=== PATIENT | male | born 1965 ===

== ENCOUNTER 2017-09-29 14:33 | Emergency (ER) | payer OTHER ==
[2017-09-29 14:48] VITALS: BP 124/83
--- NOTE | 2017-09-29 15:39 | UC ---
Headache HPI - HPI Summary HPI Summary: c/o malaise, fever, sore throat and nasal congestion for the past 5 days, was tested for influenza which was negative, and stopped treatment with tamiflu after third dose. Symptoms have continued, he c/o headaches which start above eyes and radiate backward all the way to the neck. He has not been able to sleep. Headaches do not have an aura, denies nausea/vomiting 4-5/10 in intensity , sore/pressure like. Denies blurred vision or tinnitus associated with it. He had an injury May 2017 with HNP of c5-c6 and is about to have an epidural injection for pain control. Has been taking meloxicam daily for pain. 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 [employer] Onset/Duration: Gradual Onset, Lasting Days Onset Of Symptoms: Gradual Pain Intensity: 5 Timing: Constant Character: Dull Location of Headache: Frontal, Parietal, Occipital Aggravating Factor(s): Bright Lights Allevating Factor(s): Nothing Associated Signs And Symptoms: Positive: Sinus Pressure, Neck Pain - Allergies/Home Medications Allergies/Adverse Reactions: Allergies Allergy/AdvReac Type Severity Reaction Status Date / Time No Known Allergies Allergy Verified 09/29/17 14:48 PMH/Surg Hx/FS Hx/Imm Hx Previously Healthy: Yes - Surgical History Surgical History: None - Social History Alcohol Use: Rare Substance Use Type: None Smoking Status (MU): Never Smoked Tobacco Review of Systems ENT: Sore Throat, Ear Ache, Sinus Congestion Respiratory: Cough Musculoskeletal: Arthralgia, Edema All Other Systems Reviewed And Are Negative: Yes Physical Exam Triage Information Reviewed: Yes Appearance: Well-Appearing, Well-Nourished Vital Signs: Initial Vital Signs Temp 98.9 F 09/29/17 14:43 Pulse 75 09/29/17 14:43 Resp 18 09/29/17 14:43 BP 124/83 09/29/17 14:43 Pulse Ox 98 09/29/17 14:43 Vital Signs Reviewed: Yes Eyes: Positive: Conjunctiva Clear ENT: Positive: Pharynx normal, TMs normal Neck exam: Normal Neck: Positive: Supple, Nontender, No Lymphadenopathy Respiratory: Positive: Chest non-tender, Lungs clear, Normal breath sounds, No respiratory distress Cardiovascular: Positive: RRR, No Murmur, Pulses Normal Abdomen Description: Positive: Nontender Bowel Sounds: Positive: Present Musculoskeletal: Positive: Strength Intact, ROM Intact, No Edema Neurological Exam: Other - cn II to XII grossly intact, no ataxia, no adiadocokinesia, DTR symmetric and present, sensory intact. No nistagmus Neurological: Positive: Alert, Muscle Tone Normal Headache Course/Dx - Course Course Of Treatment: start tizanidine for cervicalgia along with meloxicam, continue supportive measures, oral hydration, f/u pain management, PCP. Return if headaches worsen or if associated with nausea, tingling, or visual disturbances. - Differential Dx/Diagnosis Provider Diagnoses: Headache. Viral syndrome. Cervical spondilitis Discharge - Discharge Plan Condition: Stable Disposition: HOME Referrals: No Primary Care Phys,NOPCP [Primary Care Provider] - [facility] [Outside]
== END 2017-09-29 16:07 | disposition home or self-care (01) ==
LOC: UCEAST 14:33
DX: R51 Headache (principal); B34.9 Viral infection, unspecified; M46.92 Unspecified inflammatory spondylopathy, cervical region
CPT/HCPCS: 87651; 99212; G0463